=== PATIENT | male | born 2000 | race Caucasian/White ===

== ENCOUNTER 2024-01-27 08:02 | Emergency (ER) | payer SELFPAY ==
[~2024-01-27] VITALS: Ht 162.6 cm; Wt 64.0 kg
[2024-01-27 08:12] VITALS: O2SAT 97
[2024-01-27] MEDS: IBUPROFEN 400MG TABLET PO ONE (08:37)
[2024-01-27] MEDS ORDERED: IBUP-2028 PO (08:58)
[2024-01-27 09:25] VITALS: BP 124/68; PULSE 71; RESP 18; TEMP 98.2
== END 2024-01-27 09:25 | disposition home or self-care (01) ==
LOC: ER 08:02
DX: M54.2 Cervicalgia (principal); V49.9XXA Car occupant (driver) (passenger) injured in unspecified traffic accident, initial encounter; Y93.89 Activity, other specified; Y92.89 Other specified places as the place of occurrence of the external cause; Y99.8 Other external cause status
CPT/HCPCS: 99283